=== PATIENT | male | born 1950 | race Caucasian/White ===

== ENCOUNTER 2017-10-24 14:47 | Outpatient (CLI) | payer OTHER | END 2017-10-24 14:57 | disposition short-term general hospital (02) | LOC: AMBL 14:47 | PROVIDERS: ATTEND Emergency Medicine | DX: M54.2 Cervicalgia (principal); S50.812A Abrasion of left forearm, initial encounter; S50.811A Abrasion of right forearm, initial encounter; V43.53XA Car driver injured in collision with pick-up truck in traffic accident, initial encounter ==

== ENCOUNTER 2017-11-11 13:48 | Outpatient (CLI) | payer OTHER ==
--- NOTE | 2017-11-11 14:31 | DI ---
EXAM: Three views of the thoracic spine. History: Thoracic back pain. Comparison: None available. Findings: No acute fracture or subluxation of the thoracic spine. Mild multilevel degenerative disc space narrowing with a few tiny osteophytes. Impression: 1. No acute osseous abnormality of the thoracic spine. 2. Mild degenerative disc disease.
== END 2017-11-11 13:49 | disposition home or self-care (01) ==
LOC: RAD 13:48
PROVIDERS: ATTEND Emergency Medicine
DX: M54.6 Pain in thoracic spine (principal)